=== PATIENT | female | born 1970 | race Caucasian/White ===

== ENCOUNTER → 2016-04-22 | Outpatient (CLI) | payer OTHER ==
--- NOTE | 2016-04-23 09:28 | MAM ---
EXAM DESCRIPTION: MAMMO BREAST SCREENING BILATERAL CAD, images were reviewed with CAD technology, R2 computer-aided detection. CLINICAL HISTORY: [facility]. COMPARISON: 2011. FINDINGS: Routine views are obtained. Scattered glandular pattern is slightly nodular in contour and of increased mammographic density, pattern stable. No dominant mass, architectural distortion or clustered microcalcification.. IMPRESSION: Benign exam. BIRAD CATEGORY: 2 BENIGN RECOMMENDATIONS: FOLLOW-UP: Routine screening mammogram in one year. According to the [employer], yearly mammograms are recommended starting at age 40 and continuing as long as a woman is in good health. Any breast change noted on a breast self-exam should be reported promptly to the patient's healthcare provider. Breast MRI is recommended for women with an approximately 20-25% or greater lifetime risk of breast cancer, including women with a strong family history of breast or ovarian cancer and women who have been treated for Hodgkin's disease. Electronically signed by: Jessy Lou 04/23/2016 09:26
== END ==
LOC: MAMMO 14:35
PROVIDERS: ATTEND Obstetrics & Gynecology
DX: Z12.31 Encounter for screening mammogram for malignant neoplasm of breast (principal)
CPT/HCPCS: 77067; G0202

== ENCOUNTER → 2016-07-24 | Outpatient (CLI) | payer OTHER ==
--- NOTE | 2016-07-24 17:36 | MAM ---
History: New palpable nodule right breast. DATE OF SERVICE: 07/24/2016 Services provided: Full field digital diagnostic right mammography. CAD, the images were reviewed with R2 computer aided detection. Targeted Limited right breast ultrasound. FINDINGS: Routine and true lateral views are obtained. Exaggerated lateral craniocaudal projection view right breast is compared with studies from 2013. Glandular tissue is heterogeneously dense. No dominant mass, architectural distortion or clustered microcalcification. Directed ultrasound examination demonstrates a 2.4 cm cyst corresponding to the region of palpable change right breast 12:00. The cyst wall is somewhat thickened however no internal contents are demonstrated. IMPRESSION: Benign exam. Palpable change corresponds to a simple cyst right breast 12:00. Recommendation: Routine annual mammography. This will be due in March. Findings and recommendations were discussed with the patient. BIRAD CATEGORY: 2 BENIGN Electronically signed by: Jessy Lou MD 07/24/2016 5:36 PM CDT
== END ==
LOC: MAMMO 16:34
PROVIDERS: ATTEND Obstetrics & Gynecology
DX: R92.8 Other abnormal and inconclusive findings on diagnostic imaging of breast (principal); N63 Unspecified lump in breast
CPT/HCPCS: 76641; G0204

== ENCOUNTER → 2017-04-10 | Outpatient (CLI) | payer OTHER | END | disposition home or self-care (01) | LOC: LAB.O 07:56 | PROVIDERS: ATTEND Obstetrics & Gynecology | DX: Z01.419 Encounter for gynecological examination (general) (routine) without abnormal findings (principal); E06.3 Autoimmune thyroiditis; N95.2 Postmenopausal atrophic vaginitis ==

== ENCOUNTER → 2017-07-27 | Outpatient (CLI) | payer OTHER ==
--- NOTE | 2017-07-29 14:41 | MAM ---
EXAM DESCRIPTION: 3D Screening BILATERAL : Digital Mammography. CLINICAL HISTORY: 47 years Female SCREEN . No complaints. No family history of breast cancer. Postmenopausal. No HRT. COMPARISON: 2-D digital diagnostic right breast mammography 07/24/2016. Bilateral 2-D digital screening examination 04/22/2016.. Reports from prior examinations also reviewed. TECHNIQUE: Bilateral CC and MLO projection full-field images, with [employer] 3-D tomosynthesis digital mammographic technique. Also bilateral synthesized CC/ MLO full-field images. CAD not utilized. FINDINGS: The breast parenchymal density pattern is: Heterogeneously dense breast tissue, which may obscure small masses. No skin thickening or nipple retraction scattered bilateral solitary microcalcifications. Group of heterogeneous microcalcifications on the posterior margin of the dense fibroglandular tissues in the upper inner quadrant of the posterior third of the left breast at the 1000 clock position, 6 cm from the breast. Not well seen on the prior study in March 2016. No definite mass. No focal, stellate mass or density, focal asymmetry , and no suspicious microcalcifications right breast. IMPRESSION: . BI-RADS CATEGORY: 0 - INCOMPLETE- Need additional imaging evaluation. FOLLOW-UP: Recall for additional imaging: Bilateral 3-D tomosynthesis diagnostic full field LM images. 2-D spot magnification images of the region of interest in the left breast in the CC and LM projections. Targeted left breast ultrasound if indicated by diagnostic images. Written communication concerning the IMPRESSION and Follow-up, will be mailed to the patient and referring health care provider. Electronically signed by: Shan Saleem MD 07/29/2017 2:39 PM CDT
== END ==
LOC: MAMMO 14:07
PROVIDERS: ATTEND Obstetrics & Gynecology
DX: Z12.31 Encounter for screening mammogram for malignant neoplasm of breast (principal)

== ENCOUNTER → 2017-08-05 | Outpatient (CLI) | payer OTHER ==
--- NOTE | 2017-08-05 12:20 | MAM ---
EXAM DESCRIPTION: 3D Diagnostic, Bilateral: Digital Mammography CLINICAL HISTORY: 47 yearsFemaleABNORMAL MAMMOGRAM group of microcalcifications posterior third left breast.. COMPARISON: 3-D screening bilateral mammography 07/27/2017.. Reports from prior examinations also reviewed. TECHNIQUE: Bilateral LM projection full-field images, 3-D tomosynthesis digital mammographic technique. Also bilateral synthesized LM full-field images. Spot 2-D digital magnification images posterior upper left breast in the CC and LM projections. CAD not utilized. FINDINGS: The breast parenchymal density pattern is: Heterogeneously dense breast tissue, which may obscure small masses. No skin thickening or nipple retraction denser tissues are anterior. Group of heterogeneous microcalcifications at the 1100 clock position of the posterior third of the left breast overlying the anterior pectoral muscle on the LM projection. Other scattered microcalcifications. The group of calcifications in question are predominantly well rounded with varying sizes. No associated soft tissue mass. No focal, stellate mass or density, or focal asymmetry bilaterally. IMPRESSION: BI-RADS CATEGORY: 3 - PROBABLY BENIGN. Management: Short interval (6-month) follow-up digital mammography. The FINDINGS and the FOLLOW-UP plan were reviewed in person, by the supply specialist, with the patient after the examination. Written communication explaining the IMPRESSION and FOLLOW-UP will be mailed to the patient and referring care provider. Electronically signed by: Shan Saleem MD 08/05/2017 12:18 PM CDT
== END ==
LOC: MAMMO 11:00
PROVIDERS: ATTEND Obstetrics & Gynecology
DX: R92.8 Other abnormal and inconclusive findings on diagnostic imaging of breast (principal)
CPT/HCPCS: 77066; G0279

== ENCOUNTER → 2017-11-09 | Outpatient (CLI) | payer OTHER | LOC: LAB.O 06:59 | PROVIDERS: ATTEND Emergency Medicine | DX: Z13.1 Encounter for screening for diabetes mellitus (principal); M25.50 Pain in unspecified joint; R53.83 Other fatigue; Z78.0 Asymptomatic menopausal state; M79.7 Fibromyalgia; R68.2 Dry mouth, unspecified; K12.0 Recurrent oral aphthae; G62.9 Polyneuropathy, unspecified ==

== ENCOUNTER → 2018-02-09 | Outpatient (CLI) | payer OTHER ==
--- NOTE | 2018-02-09 16:45 | MAM ---
EXAM DESCRIPTION: 3D Diagnostic, Bilateral: Digital Mammography CLINICAL HISTORY: 47 yearsFemale6 MONTH FOLLOW UP microcalcifications in the left breast.. No complaints. COMPARISON: Bilateral diagnostic digital breast tomosynthesis 08/05/2017.. TECHNIQUE: Left breast CC LM MLO projection full-field images, and right breast LM projection full-field images, digital mammographic tomosynthesis technique. Magnification images of the upper inner quadrant of the left breast in the LM and CC projections CAD not utilized. FINDINGS: The breast parenchymal density pattern is: Heterogeneously dense breast tissue, which may obscure small masses. No skin thickening or nipple retraction again noted is a heterogeneous group of calcifications in the posterior third of the upper inner quadrant of the left breast at the 10:00 position, approximately 6 cm from the nipple. Magnification and tomosynthesis views show calcifications are more heterogeneous since the prior study with new pin-point calcifications present. Other microcalcifications associated with the fibroglandular tissues appear stable including a larger coarse calcification at the 12:00 position of the middle third. IMPRESSION: BI-RADS CATEGORY 4: SUSPICIOUS. SUB-CATEGORY 4A - LOW SUSPICION FOR MALIGNANCY. Surgical consultation and tissue diagnosis should be considered. The FINDINGS and FOLLOW-UP plan were reviewed in person with the patient following the examination. Mammographic guided needle wire localization followed by open biopsy and mammographic stereotactic biopsy procedure were discussed with the patient. Written communication explaining the IMPRESSION and FOLLOW-UP will be mailed to the patient and referring care provider. CRITICAL COMMUNICATION: The critical value was discussed directly by phone with Mr. Ernesto Hurd at approximately 1558 hours, on February 09, 2018. Electronically signed by: Shan Saleem MD 02/09/2018 4:43 PM [facility]
== END ==
LOC: MAMMO 13:53
PROVIDERS: ATTEND Obstetrics & Gynecology
DX: R92.8 Other abnormal and inconclusive findings on diagnostic imaging of breast (principal)
CPT/HCPCS: 77066; G0279

== ENCOUNTER 2018-03-08 05:37 | Day surgery (SDC) | payer OTHER ==
[2018-03-08] MEDS ORDERED: SODIUM CHL 0.9% 100ML MINI-BAG 100 ML IVPB ONE (06:47)
[2018-03-08] MEDS ORDERED: LACTATED RINGERS 1,000 ML ONE (06:47)
[2018-03-08] MEDS ORDERED: ceFAZolin SODIUM 1 GM VIAL ONE (06:47)
[2018-03-08] MEDS ORDERED: LIDOCAINE 1% 50 ML VIAL INJ ONE (07:12)
[2018-03-08] MEDS ORDERED: BUPIVACAINE 0.25% INJ 30 ML VIAL INJ ONE (07:12)
[2018-03-08] MEDS ORDERED: SODIUM BICARBONATE VIAL 50 MEQ/50 ML VIAL ONE (07:13)
[2018-03-08] MEDS ORDERED: MIDAZOLAM INJ 2 MG/2 ML VIAL ONE (07:19)
[2018-03-08] MEDS ORDERED: fentaNYL CITRATE INJ 50 MCG/ML AMP ONE (07:19)
[2018-03-08] MEDS ORDERED: PROPOFOL 200 MG/20 ML VIAL IV ONE (10:00)
[2018-03-08] MEDS ORDERED: METOCLOPRAMIDE HCL INJ 10 MG/2 ML VIAL IV ONE (10:00)
[2018-03-08] MEDS ORDERED: ONDANSETRON INJ 4 MG/2 ML VIAL IV ONE (10:00)
[2018-03-08 11:06] VITALS: TEMP 97.1
--- NOTE | 2018-03-08 11:19 | OP ---
DATE OF PROCEDURE: 03/08/18 PREOPERATIVE DIAGNOSIS: 1. Abnormal mammogram with indeterminant microcalcifications. POSTOPERATIVE DIAGNOSIS: 1. Abnormal mammogram with indeterminant microcalcifications. PROCEDURE: 1. Excision of left breast lesion after needle localization. SURGEON: Deny Kaur MD. ODD JOBS DAY WORKER: None. ANESTHESIA: Local infiltration of 1% lidocaine with bicarb and IV sedation by Anesthesia. INDICATION: The patient is a 48-year-old female who on mammography was found to have microcalcifications which did seem to progress over the last 6 months. She was brought to the Surgical Suite today for excision after the needle localization was performed in Radiology. FINDINGS: A mammographic examination of the specimen revealed the microcalcifications within the specimen. PROCEDURE: After the patient underwent the needle localization in Radiology and the study was reviewed by me with Dr. Morales, the patient was brought to the Surgical Suite and placed in the supine position. She was prepped and draped in the usual sterile manner. She was given IV Ancef. At this point, a surgical time-out was taken. A curvilinear incision was fashioned between the guidewire insertion site and the areola, first with a marking pen and then with infiltration of anesthesia. The skin was incised with a knife and dissection was carried down through the skin and subcutaneous tissue using electrocautery. A flap was then raised medially and superiorly until the guidewire was identified. It was then transected at this area and then a tubular specimen surrounding the wire was taken from superior and medial to lateral and inferior and from anterior to posterior. This was done with electrocautery. Multiple small blue dome cysts were identified. The mass was identified. Hemostasis was obtained with electrocautery. The specimen was removed and sent for pathologic evaluation after it was marked with silk sutures on four margins. After the patient's wound was irrigated with saline, hemostasis was noted to be adequate. The wound was then closed with the subcutaneous tissue reapproximated with interrupted 3-0 Vicryl sutures and the skin edges approximated with 4-0 Vicryl subcuticular sutures, benzoin and Steri-Strips. Sterile pressure dressing was applied. The patient tolerated the procedure well. Estimated blood loss was less than 25 mL. All sponge, needle and instrument counts were correct. #[id number] [facility]
[2018-03-08 11:36] VITALS: BP 121/80; O2SAT 99
--- NOTE | 2018-03-08 12:13 | MAM ---
EXAM DESCRIPTION: Breast-Needle Localization Lt CLINICAL HISTORY: 48 years FemaleLUMPECTOMY. Abnormal group of microcalcifications posterior third left breast, upper outer quadrant. COMPARISON: Bilateral diagnostic digital breast tomosynthesis 02/09/2018. TECHNIQUE: The procedure was explained to the patient with risks and benefits. The patient gave verbal and written consent. The area for localization was identified in the upper outer quadrant of the posterior third of the left breast at the 9:30 position. The patient was placed in the digital mammographic unit in the medial lateral position, utilizing the special compression paddle with localizing window. Medial lateral image shows a group of microcalcifications at coordinates F-G/2. Sterile preparation. Intradermal injection of sodium bicarbonate and standard strength Xylocaine. The introducer needle of the 7 mm mySkin system was introduced through the paddle window into the medial posterior third of the left breast. Repeat mediolateral image, with needle in place. The breast was moved into the craniocaudal position; repeat images after adjustment showing proper needle depth. Continuing sterile technique, the wire was introduced through the needle into the breast parenchyma, and the needle was withdrawn, leaving hook wire in place. Repeat craniocaudal image. Repeat mediolateral image with wire only. The patient tolerated the procedure well with no immediate complications. FINDINGS: The images recorded during the procedure and postprocedure show the hook of the wire passing through the group of calcifications in the posterior third, upper outer quadrant left breast, at the 9:30 clock position. The thickened part of the wire proximal to the hook, is adjacent to the calcifications at the proximal aspect of the second wire. IMPRESSION: Successful mammographic guided needle wire localization of left breast abnormal group of microcalcifications.. The procedure results were discussed and images were reviewed with Dr. Kaur, prior to excisional biopsy. Digital mammography of the biopsy specimen to follow excisional biopsy. Electronically signed by: Shan Saleem MD 03/08/2018 12:12 PM COMMUNICATIONS OPERATOR
--- NOTE | 2018-03-08 12:20 | MAM ---
EXAM DESCRIPTION: Breast Left Surgical Specimen. Digital Mammography. CLINICAL HISTORY: 48 yearsFemaleABN Left Breast MAMMO. Abnormal group of microcalcifications in the left breast. COMPARISON: Mammographic guided, needle wire localization of left breast today. TECHNIQUE: Digital mammography of left breast biopsy specimen, within the surgical specimen container FINDINGS: The left breast biopsy specimen contains the group of microcalcifications seen on today's procedure images and also seen on images from previous examinations. Increased density of the breast parenchyma around the calcifications, but no definite mass. The distal wire and hook are were not within the specimen. IMPRESSION: Successful, digital mammographic guided, needle wire localization of a group of microcalcifications in the left breast, with microcalcifications present in the biopsy specimen. The specimen will be delivered to a remote laboratory facility for pathologic examination. Electronically signed by: Shan Saleem MD 03/08/2018 12:19 PM AIR TRANSPORTATION PROVIDER
== END 2018-03-08 11:30 | disposition home or self-care (01) ==
LOC: AMB 05:37
PROVIDERS: ATTEND Surgery
DX: D24.2 Benign neoplasm of left breast (principal); R92.0 Mammographic microcalcification found on diagnostic imaging of breast; K21.9 Gastro-esophageal reflux disease without esophagitis; Z80.3 Family history of malignant neoplasm of breast; Z88.5 Allergy status to narcotic agent; Z79.899 Other long term (current) drug therapy
CPT/HCPCS: 00400; 19120; 36415; 76098; 81001; 85025; J0690; J2250; J2405; J2765; J3010; J3490; J7050; J7120

== ENCOUNTER → 2018-12-02 | Outpatient (CLI) | payer OTHER ==
--- NOTE | 2018-12-02 20:25 | MAM ---
EXAM DESCRIPTION: Diagnostic Mammo,Bilateral: Digital Mammography CLINICAL HISTORY: 48 yearsFemaleFU 9 MO AFTER BX group of microcalcifications left breast with excisional biopsy 03/08/2018. Benign. No complaints. No personal history of breast cancer. Remote family history of breast cancer. Childbirth. Postmenopausal 25+ years.. No HRT. Lifetime risk of developing breast cancer (Tyrer-Cuzick model) percentage is 8 COMPARISON: Bilateral screening digital breast tomosynthesis 07/27/2017. Bilateral diagnostic digital breast tomosynthesis 02/09/2018. Digital mammographic guided needle wire localization left breast 03/08/2018. . TECHNIQUE: Bilateral CC, MLO, and LM projection full-field images, digital mammographic tomosynthesis technique. Bilateral 2-D digital full-field MLO images. LM and MLO CAD not utilized. FINDINGS: The breast parenchymal density pattern is: Heterogeneously dense breast tissue, which may obscure small masses. No skin thickening or nipple retraction abnormal group of microcalcifications in the upper outer quadrant of the posterior third of the left breast 9:30 position no longer visualized. One or 2 solitary round microcalcifications present. Minimal architectural distortion at the biopsy site which is not indicated by marker. Scattered microcalcifications bilaterally associated with the dense fibroglandular tissues.. No new focal, stellate mass or density, focal asymmetry , and no suspicious microcalcifications bilaterally. IMPRESSION: Benign exam. BIRAD CATEGORY: 2 BENIGN FINDINGS. RECOMMENDATIONS: FOLLOW UP: Return to routine digital bilateral mammographic screening, one year interval from November 2018. Written communication explaining the IMPRESSION and follow-up, will be mailed to the patient and referring health care provider. The FINDINGS and the FOLLOW-UP plan were reviewed in person with the patient after the examination. According to the [employer], yearly mammograms are recommended starting at age 40 and continuing as long as a woman is in good health. Any breast change noted on a breast self-exam should be reported promptly to the patient's healthcare provider. Breast MRI is recommended for women with an approximately 20-25% or greater lifetime risk of breast cancer, including women with a strong family history of breast or ovarian cancer and women who have been treated for Hodgkin's disease. A negative mammographic report should not delay tissue diagnosis in patients with significant clinical history or physical findings. Extremely dense breast tissue limits the sensitivity of digital mammography. Electronically signed by: Shan Saleem MD 12/02/2018 8:24 PM CDT
== END ==
LOC: US 10:32
PROVIDERS: ATTEND Surgery
DX: Z98.890 Other specified postprocedural states (principal); R92.1 Mammographic calcification found on diagnostic imaging of breast; R92.8 Other abnormal and inconclusive findings on diagnostic imaging of breast

== ENCOUNTER → 2019-01-20 | Outpatient (CLI) | payer OTHER ==
--- NOTE | 2019-01-20 13:18 | MRI ---
EXAM DESCRIPTION: Cervical Spine CLINICAL HISTORY: RADICULOPATHY COMPARISON: None. TECHNIQUE: Multiplanar MRI of the cervical spine was performed without contrast. FINDINGS: Cervical vertebral body heights are maintained. Focal ill-defined area of low T1 and T2 signal surrounded by increased T2 and STIR signal occupying most of the C6 vertebral body measures 9 mm craniocaudal by 1.4 cm AP. The central aspect of this lesion is mildly increased STIR signal. Mild increased T2 and STIR signal is seen involving the superior plate of C7. Straightening of the normal cervical lordosis. The craniocervical junction is maintained. A normal basilar flow void is seen. Spinal cord shows normal MRI signal. Desiccation of the disc spaces throughout the cervical spine. Mild anterior disc osteophytic ridging at C5-6 and C6-7. Less than 1 cm submandibular and cervical chain lymph nodes are seen. C1-2 and craniocervical junction Unremarkable C2-3 No significant findings. C3-4 No significant findings. C4-5 No significant findings. C5-6 Disc desiccation and mild loss of disc space height. Less than 2 mm broad-based ventral ridging disc osteophyte complex and uncovertebral joint hypertrophy results in minimal spinal canal stenosis with mild bilateral foraminal encroachment. C6-7 Disc desiccation and mild disc space narrowing with less than 2 mm mostly broad-based disc bulge narrows anterior subarachnoid space contributing to minimal spinal canal stenosis without significant foraminal encroachment. C7-T1 No significant findings. T2-T3: Disc desiccation and mild disc space narrowing with less than 2 mm broad-based disc bulge contributes to mild spinal canal stenosis asymmetric towards the right without foraminal encroachment. IMPRESSION: Mostly increased T2 and decreased T1 signal lesion involving most of the C6 vertebral body. This could represent atypical vertebral body hemangioma. No compression fracture deformity or loss of vertebral body height. Consider further evaluation with noncontrast CT to evaluate the osseous matrix of the C6 vertebral body. Mild marrow edema in the superior endplate of C7 could represent Modic type I endplate signal changes. Mild disc disease from C5 through C7 is seen. Mild bilateral foraminal encroachment is seen at C5-6. Nonspecific straightening of the normal cervical lordosis could be secondary to patient positioning or muscle spasm. Electronically signed by: Armando Guevara MD 01/20/2019 1:17 PM CDT
== END ==
LOC: MRI 10:00
PROVIDERS: ATTEND Anesthesiology
DX: M50.122 Cervical disc disorder at C5-C6 level with radiculopathy (principal); M50.123 Cervical disc disorder at C6-C7 level with radiculopathy

== ENCOUNTER → 2019-03-30 | Outpatient (CLI) | payer OTHER ==
--- NOTE | 2019-03-31 13:05 | CT ---
EXAM DESCRIPTION: Cervical Spine: Computed Tomography. CLINICAL HISTORY: 49 years Female CERVICAL DISC DISORDER COMPARISON: MRI scan of the cervical spine without contrast December 2018. TECHNIQUE: Spiral, axial 2.5 x 2.5 mm scans through the cervical spine without contrast. Axial soft tissue and bone algorithm. Coronal and sagittal 2.0 mm Reconstructions. Total Exam DLP: 264.71 mGy-cm. This exam was performed according to our departmental dose-optimization program which includes automated exposure control, adjustment of the mA and/or kV according to patient size and/or use of iterative reconstruction technique; to reduce radiation dose to as low as reasonably achievable (ALARA). FINDINGS: C5-C6: Minimal disc space loss. Anterior and posterior endplate ridging. Bilateral uncinate spurs and bilateral neural foraminal narrowing. Posterior midline disc bulge. No cord impingement and no canal stenosis. C6-C7: Minimal disc space loss. Anterior posterior endplate ridging. No uncinate spurs. Sclerosis in the mid and inferior body at C6 with Schmorl's node in the inferior endplate. Posterior disc bulge abutting the cord. No canal or neural foraminal stenosis. Minimal posterior bulge C3-C4 disc with canal and neural foramina patent. Remaining discs and disc spaces are unremarkable. No canal or neural foraminal stenosis. No hypertrophic facet arthrosis at any level. Spine is slightly kyphotic. No compression type vertebral body fracture. No locked or perched facets. No significant spondylolisthesis. No compression type vertebral body fractures. IMPRESSION: 1. Moderate size Schmorl's node in the inferior C6 endplate with surrounding sclerotic changes in the bone marrow of the vertebral body. Minimal disc space loss. Posterior bulge of the disc with endplate spurs almost abutting the cord. Canal and neural foraminal narrowing but no stenosis. No paravertebral soft tissue mass. Inflammatory process unlikely, but if discitis or other inflammatory process is suspected clinically, consider inflammatory panel to includes CMP and ESR measurements. Also consider repeat cervical MRI scan without and with gadolinium IV contrast if inflammation is suspected. 2. Minimal disc space loss at C5-C6 and posterior midline disc bulge. Canal and neural foraminal narrowing but no stenosis. 3. Minimal posterior bulge C3-C4 disc with no canal or neural foraminal stenosis. Electronically signed by: Shan Saleem MD 03/31/2019 1:03 PM [facility]
== END ==
LOC: CT 09:15
PROVIDERS: ATTEND Emergency Medicine
DX: M50.921 Unspecified cervical disc disorder at C4-C5 level (principal); M50.922 Unspecified cervical disc disorder at C5-C6 level; M46.02 Spinal enthesopathy, cervical region

== ENCOUNTER → 2019-08-04 | Outpatient (CLI) | payer OTHER ==
--- NOTE | 2019-08-08 10:18 | MRI ---
PROVIDED CLINICAL HISTORY/REASON FOR EXAM: RADICULOPATHY TECHNIQUE: Multiplanar, multisequence MRI examination performed of the cervical spine with and without intravenous contrast material. COMPARISON: 01/20/2019, March 30, 2019 FINDINGS: Alignment: Straightening of the normal cervical lordosis. Geographic Bone Lesion: Redemonstrated C6 inferior endplate Schmorl's node. The degree of edema like signal has improved from the previous examination. No suspicious associated enhancement. Fracture: None present. Abnormal Enhancement: None present. Prevertebral / Paraspinal Soft Tissues: Unremarkable. Cervicomedullary Junction: Unremarkable. Cervical Spinal Cord: Normal. C1/2: No significant abnormality. C2/3: No significant abnormality. C3/4: Small asymmetric right disc bulge. Minimal right facet and uncinate process hypertrophy. No associated stenosis. C4/5: No significant abnormality. C5/6: Disc desiccation with loss of disc space height. Diffuse symmetric disc bulge osteophyte complex. Minimal central canal stenosis. Mild bilateral neural foraminal narrowing. Bilateral facet and uncinate process hypertrophy. C6/7: Disc desiccation with loss of disc space height and endplate degenerative change. Small symmetric disc bulge osteophyte complex. Minimal central canal stenosis. No neural foraminal narrowing. C7/T1: No significant abnormality. IMPRESSION: Similar multilevel cervical spondylosis most pronounced at C5/C6 and C6/C7. No suspicious enhancement. Electronically signed by: Milton Elder MD 08/08/2019 10:02 AM CDT
== END ==
LOC: MRI 09:16
PROVIDERS: ATTEND Emergency Medicine
DX: M53.80 Other specified dorsopathies, site unspecified (principal); M47.892 Other spondylosis, cervical region

== ENCOUNTER → 2019-08-19 | Outpatient (CLI) | payer OTHER ==
--- NOTE | 2019-08-21 17:44 | MRI ---
EXAM DESCRIPTION: Lumbar Spine w/o Contrast : Magnetic Resonance Imaging. CLINICAL HISTORY: ABNORMAL IMMUNOLOGICAL FINDINGS COMPARISON: MRI scan lumbar spine without contrast March 2008. TECHNIQUE: Multiplanar, multiple standard sequences, non contrast MRI, lumbar spine. FINDINGS: L5-S1: The disc is well visualized on axial T2 series 501, image 3. Normal signal in the disc with minimal disc space loss. Tiny posterior midline bulge. Facet joints and posterior flavum ligaments (canal elements) are unremarkable. Bilateral moderate to severe foraminal narrowing more on the left. Foraminal narrowing is progressed at both levels since the prior study. L4-L5: Disc desiccation with disc space maintained. Minimal degenerative hypertrophy of the canal elements. Canal is patent. Mild to moderate right foraminal narrowing and mild left foraminal narrowing. L3-L4: Disc desiccation with minimal anterior disc space loss and disc osteophyte bulging. Posterior broad-based bulge. Minimal degenerative hypertrophy of the canal elements. Mild canal narrowing. Bilateral mild foraminal narrowing. These findings have progressed since the prior study. L2-L3: Disc desiccation with anterior bulging and endplate ridging. Trace posterior broad-based bulge. Minimal degenerative hypertrophy of the canal elements. Canal narrowing. Mild bilateral foraminal narrowing. These findings have progressed since the prior study. L1-L2: Disc space maintained normal signal in the disc. Canal elements are unremarkable. Canal and foramina are patent. T12-L1: Disc space maintained with normal signal in the disc. No bulging. Canal elements unremarkable. Canal and foramina are patent. Circumscribed hyperintense T1 and T2 hemangioma T12 vertebral body. Stable since the prior study. Conus terminates at this level. No significant scoliosis. Paravertebral soft tissues minimal fatty muscle atrophy.. Distal cord normal signal and caliber. Otherwise normal marrow signal in the remaining vertebral bodies and the posterior elements. Vertebral bodies are not compressed at any level. IMPRESSION: 1. Disc desiccation at several levels with disc space loss and early anterior endplate changes with disc bulge. This has progressed since the prior study. 2. Bilateral moderate to severe foraminal narrowing at L5-S1 has progressed since the prior study. Correlate for unilateral or bilateral L5 radiculopathy. Electronically signed by: Shan Saleem MD 08/21/2019 5:42 PM CDT
== END ==
LOC: MRI 10:00
PROVIDERS: ATTEND Emergency Medicine
DX: M51.36 Other intervertebral disc degeneration, lumbar region (principal); M51.86 Other intervertebral disc disorders, lumbar region; M48.07 Spinal stenosis, lumbosacral region; R76.8 Other specified abnormal immunological findings in serum

== ENCOUNTER → 2019-12-22 | Outpatient (CLI) | payer OTHER ==
--- NOTE | 2019-12-27 16:47 | MAM ---
EXAM DESCRIPTION: 3D Screening BILATERAL : Digital Mammography. CLINICAL HISTORY: 49 years Female ANNUAL SCREENING benign left breast biopsy. Remote family history of breast cancer. No acute age 13. Childbirth age 20. Menopause age unknown. No HRT. Lifetime risk of developing breast cancer (Tyrer-Cuzick model)(%): 7.4. COMPARISON: Bilateral diagnostic digital breast tomosynthesis November 2018. Bilateral screening digital breast tomosynthesis July 2017. TECHNIQUE: Bilateral CC and MLO projection full-field images, digital tomosynthesis mammographic technique. Bilateral digital 2-D full-field MLO images. CAD available for 2-D images. FINDINGS: The breast parenchymal density pattern is: Heterogeneously dense breast tissue, which may obscure small masses. No skin thickening or nipple retraction. Small microcalcifications in the right breast are stable. Left axillary nodes. No new focal, stellate mass or density, focal asymmetry , and no suspicious microcalcifications bilaterally. IMPRESSION: Benign exam. BIRAD CATEGORY: 2 BENIGN FINDINGS. RECOMMENDATIONS: FOLLOW UP: Routine digital bilateral mammographic screening, one year interval from December 2019. Written communication explaining the IMPRESSION and follow-up, will be mailed to the patient and referring health care provider. According to the [employer], yearly mammograms are recommended starting at age 40 and continuing as long as a woman is in good health. Any breast change noted on a breast self-exam should be reported promptly to the patient's healthcare provider. Breast MRI is recommended for women with an approximately 20-25% or greater lifetime risk of breast cancer, including women with a strong family history of breast or ovarian cancer and women who have been treated for Hodgkin's disease. A negative mammographic report should not delay tissue diagnosis in patients with significant clinical history or physical findings. Extremely dense breast tissue limits the sensitivity of digital mammography. Electronically signed by: Shan Saleem MD 12/27/2019 4:45 PM CDT
== END ==
LOC: MAMMO 09:30
PROVIDERS: ATTEND Obstetrics & Gynecology
DX: Z12.31 Encounter for screening mammogram for malignant neoplasm of breast (principal)

== ENCOUNTER → 2020-02-10 | Outpatient (CLI) | payer OTHER ==
--- NOTE | 2020-02-11 20:34 | US ---
EXAM DESCRIPTION: Pelvis Transvaginal: Ultrasound. CLINICAL HISTORY: 49 years Female PAIN PELVIS COMPARISON: None. TECHNIQUE: Endovaginal scanning; Rivera-scale and Doppler modes. FINDINGS: Uterus surgically absent. . Cervix 11.9 x 8.9 mm cyst.. Cul-de-sac no fluid. Right ovary 2.9 x 1.7 x 1.6 cm 4.1 mL. Normal color Doppler vascularity. 1.2 cm simple follicle; no cysts. No adnexal mass or free fluid. Left ovary not seen in the left adnexa. No adnexal mass or free fluid. IMPRESSION: 1. Uterus not present surgically removed. 11.9 mm nabothian cyst on the cervix. No fluid in the cul-de-sac. 2. Left ovary not seen in the left adnexa. Right ovary 1.2 cm simple follicle. No fluid in either adnexa. No further follow-up recommended. Electronically signed by: Shan Saleem MD 02/11/2020 8:32 PM [employer]
== END ==
LOC: US 10:16
PROVIDERS: ATTEND Emergency Medicine
DX: N88.8 Other specified noninflammatory disorders of cervix uteri (principal); Z90.710 Acquired absence of both cervix and uterus